=== PATIENT | female | born 1935 | race African-American/Black ===

== ENCOUNTER 2019-05-30 14:19 | Emergency (ER) | payer MEDICARE, MEDICAID ==
[~2019-05-30] VITALS: Ht 175.3 cm; Wt 68.0 kg
[2019-05-30] MEDS ORDERED: OXYCODONE HCL 10MG TABLET SR 12HR PO ONE ×2 (15:30→21:00)
[2019-05-30 17:26] LABS: BASOPHILS % 0.3 % (0.0-2.0); EOSINOPHILS % 0.7 % (0.0-5.0); HEMATOCRIT. 37.5 % (36.0-48.0); HEMOGLOBIN. 12.5 g/dL (12.0-16.0); LYMPHOCYTES % 14.7 % (20.0-50.0); MEAN CORPUSCULAR HEMOGLOBIN 33.7 pg (28.0-32.0); MEAN CORPUSCULAR VOLUME 101.2 fL (81.0-99.0); MEAN PLATELET VOLUME 7.3 fl (7.4-10.4); NEUTROPHILS % 77.3 % (40.0-76.0); PLATELET 251 x1000/uL (130-400); RED CELL DISTRIBUTION WIDTH 13.2 % (11.6-14.6)
[2019-05-30 17:29] LABS: CHLORIDE 98 mEq/L (98-107)
[2019-05-30] MEDS ORDERED: MORPHINE SULFATE 4 MG/ML CPJ (NOT FOR IM USE) IV ONE (18:30)
[2019-05-30] MEDS ORDERED: ONDANSETRON HCL 4MG/2ML INJ IV ONE (18:30)
[2019-05-30 21:31] VITALS: BP 164/76
[2019-05-31] MEDS ORDERED: BRIM.2 RIGHTEYE (08:43)
[2019-05-31] MEDS ORDERED: SACU1TAB MT (08:44)
[2019-05-31] MEDS ORDERED: ASPI-1158 PO (08:45)
[2019-05-31] MEDS ORDERED: OXYC15TA88 MT (08:46)
[2019-05-31] MEDS ORDERED: TAFL1DRO EACHEYE (13:14)
[2019-05-31] MEDS ORDERED: BRIM15DR8 EACHEYE (13:16)
[2019-05-31] MEDS ORDERED: BRIM5DRO RIGHTEYE (13:30)
== END 2019-05-30 21:35 | disposition home or self-care (01) ==
LOC: ER 14:34
DX: R10.9 Unspecified abdominal pain (principal); R07.81 Pleurodynia; R07.89 Other chest pain; I11.0 Hypertensive heart disease with heart failure; I50.9 Heart failure, unspecified; Z95.0 Presence of cardiac pacemaker
CPT/HCPCS: 36415; 71045; 74176; 80053; 83880; 84484; 85025; 93005; 96374; 96375; 99284; J2270; J2405

== ENCOUNTER 2019-05-31 00:15 | Inpatient (IN) | payer MEDICARE, MEDICAID ==
[~2019-05-31] VITALS: Ht 170.2 cm; Wt 66.7 kg
[2019-05-31 02:10] LABS: BASOPHILS % 0.2 % (0.0-2.0); EOSINOPHILS % 0.1 % (0.0-5.0); HEMATOCRIT. 38.5 % (36.0-48.0); HEMOGLOBIN. 12.9 g/dL (12.0-16.0); MEAN CORPUSCULAR HEMOGLOBIN 34.1 pg (28.0-32.0); MEAN CORPUSCULAR VOLUME 101.9 fL (81.0-99.0); MEAN PLATELET VOLUME 8.1 fl (7.4-10.4); MONOCYTES % 8.2 % (2.0-8.0); NEUTROPHILS % 81.5 % (40.0-76.0); PLATELET 240 x1000/uL (130-400); RED BLOOD CELL COUNT 3.78 mill/uL (4.2-5.4); RED CELL DISTRIBUTION WIDTH 13.3 % (11.6-14.6)
[2019-05-31 02:15] LABS: CHLORIDE 102 mEq/L (98-107)
[2019-05-31] MEDS ORDERED: MORPHINE SULFATE 4 MG/ML CPJ (NOT FOR IM USE) IV SCH (03:00)
[2019-05-31 08:13] VITALS: BP 134/66
[2019-05-31] MEDS ORDERED: BRIM.2 RIGHTEYE (08:43)
[2019-05-31] MEDS ORDERED: SACU1TAB MT (08:44)
[2019-05-31] MEDS ORDERED: ASPI-1158 PO (08:45)
[2019-05-31] MEDS ORDERED: OXYC15TA88 MT (08:46)
[2019-05-31] MEDS: OXYCODONE HCL 5MG TABLET PO PRN ×3 (10:20→23:02)
[2019-05-31 10:27] VITALS: BP 134/66
[2019-05-31 12:00] VITALS: BP 138/61
[2019-05-31] MEDS ORDERED: TAFL1DRO EACHEYE (13:14)
[2019-05-31] MEDS ORDERED: BRIM15DR8 EACHEYE (13:16)
[2019-05-31] MEDS ORDERED: BRIM5DRO RIGHTEYE (13:30)
[2019-05-31] MEDS: ASPIRIN 81MG EC TABLET PO SCH (14:32)
[2019-05-31] MEDS: LOSARTAN POTASSIUM 25 MG TABLET PO SCH (14:32)
[2019-05-31] MEDS ORDERED: POTASSIUM CHLORIDE 20MEQ TABLET SR PO NR (15:00)
[2019-05-31 16:00] VITALS: BP 117/53
[2019-05-31 20:00] VITALS: BP 111/58
[2019-05-31] MEDS ORDERED: ONDANSETRON HCL 4MG/2ML INJ IV PRN (22:15)
[2019-05-31] MEDS ORDERED: MAGNESIUM/ALUMINUM HYDROXIDE/SIMETHICONE 30ML UDC PO PRN (22:15)
[2019-05-31] MEDS ORDERED: ACETAMINOPHEN 325MG TABLET PO PRN (22:15)
[2019-05-31] MEDS ORDERED: LORAZEPAM 0.5MG TABLET PO PRN (22:15)
[2019-05-31] MEDS ORDERED: CLONIDINE 0.1MG TABLET PO PRN (22:15)
[2019-05-31] MEDS ORDERED: DIPHENHYDRAMINE 50MG/ML VIAL IV PRN (22:15)
[2019-06-01] VITALS: BP 124/59
[2019-06-01 04:00] VITALS: BP 130/67
[2019-06-01] MEDS: OXYCODONE HCL 5MG TABLET PO PRN ×4 (05:04→23:13)
[2019-06-01] MEDS: SODIUM CHLORIDE 0.9% INJ 3ML FLUSH IVF SCH ×3 (05:05→21:34)
[2019-06-01 07:46] LABS: BASOPHILS % 0.8 % (0.0-2.0); EOSINOPHILS % 4.1 % (0.0-5.0); HEMATOCRIT. 32.4 % (36.0-48.0); HEMOGLOBIN. 10.8 g/dL (12.0-16.0); LYMPHOCYTES % 30.9 % (20.0-50.0); MEAN CORPUSCULAR HEMOGLOBIN 33.7 pg (28.0-32.0); MEAN CORPUSCULAR VOLUME 101.2 fL (81.0-99.0); MONOCYTES % 11.9 % (2.0-8.0); NEUTROPHILS % 52.3 % (40.0-76.0); PLATELET 207 x1000/uL (130-400); RED CELL DISTRIBUTION WIDTH 13.3 % (11.6-14.6)
[2019-06-01 07:53] LABS: CHLORIDE 105 mEq/L (98-107)
[2019-06-01 08:00] VITALS: BP 111/57
[2019-06-01 08:05] LABS: LDL CHOLESTEROL 78 mg/dL (5-100)
[2019-06-01 08:06] LABS: CREATINE KINASE 102 IU/L (26-192); CREATINE KINASE MB FRACTION 2.3 ng/mL (0.5-3.6)
[2019-06-01 08:07] LABS: HDL CHOLESTEROL 59 mg/dL (40-59)
[2019-06-01] MEDS: BRIMONIDINE 0.2% OPHTH DROPS 5ML BOTHEYE SCH ×3 (08:13→17:24)
[2019-06-01] MEDS: ENOXAPARIN 40MG/0.4ML SYR SUBCUT SCH (09:00)
[2019-06-01] MEDS ORDERED: NON FORMULARY PATIENT HOME MED OP SCH ×2 (09:00→21:00)
[2019-06-01] MEDS: ASPIRIN 81MG EC TABLET PO SCH (09:36)
[2019-06-01] MEDS: LOSARTAN POTASSIUM 25 MG TABLET PO SCH (09:37)
[2019-06-01 12:00] VITALS: BP 101/43
[2019-06-01 16:00] VITALS: BP 130/58
[2019-06-01 18:50] LABS: VITAMIN B12 SERUM 740 pg/mL (211-911)
[2019-06-01 20:00] VITALS: BP 113/62
[2019-06-02] VITALS: BP 104/40
[2019-06-02 04:00] VITALS: BP 136/66
[2019-06-02] MEDS: OXYCODONE HCL 5MG TABLET PO PRN ×4 (05:22→23:13)
[2019-06-02] MEDS: SODIUM CHLORIDE 0.9% INJ 3ML FLUSH IVF SCH ×3 (05:31→22:00)
[2019-06-02 08:00] VITALS: BP 127/69
[2019-06-02] MEDS: ENOXAPARIN 40MG/0.4ML SYR SUBCUT SCH (09:00)
[2019-06-02] MEDS: LOSARTAN POTASSIUM 25 MG TABLET PO SCH (09:00)
[2019-06-02] MEDS: ASPIRIN 81MG EC TABLET PO SCH (09:02)
[2019-06-02] MEDS: BRIMONIDINE 0.2% OPHTH DROPS 5ML BOTHEYE SCH ×3 (09:03→17:11)
[2019-06-02 12:00] VITALS: BP 121/52
[2019-06-02 16:00] VITALS: BP 141/55
[2019-06-02 20:00] VITALS: BP 126/62
[2019-06-03] VITALS: BP 119/50
[2019-06-03 04:00] VITALS: BP 86/41
[2019-06-03 05:15] VITALS: BP 109/45
[2019-06-03] MEDS: SODIUM CHLORIDE 0.9% INJ 3ML FLUSH IVF SCH ×4 (05:17→21:44)
[2019-06-03] MEDS: OXYCODONE HCL 5MG TABLET PO PRN ×4 (05:17→23:02)
[2019-06-03 07:49] LABS: CHLORIDE 103 mEq/L (98-107)
[2019-06-03 08:00] VITALS: BP 120/69
[2019-06-03 08:24] LABS: BASOPHILS % 0.9 % (0.0-2.0); EOSINOPHILS % 4.8 % (0.0-5.0); HEMATOCRIT. 28.7 % (36.0-48.0); HEMOGLOBIN. 9.6 g/dL (12.0-16.0); LYMPHOCYTES % 30.3 % (20.0-50.0); MEAN CORPUSCULAR HEMOGLOBIN 33.9 pg (28.0-32.0); MEAN CORPUSCULAR VOLUME 101.5 fL (81.0-99.0); MEAN PLATELET VOLUME 7.6 fl (7.4-10.4); MONOCYTES % 14.7 % (2.0-8.0); NEUTROPHILS % 49.3 % (40.0-76.0); PLATELET 186 x1000/uL (130-400); RED BLOOD CELL COUNT 2.83 mill/uL (4.2-5.4); RED CELL DISTRIBUTION WIDTH 13.1 % (11.6-14.6)
[2019-06-03] MEDS: LOSARTAN POTASSIUM 25 MG TABLET PO SCH (10:02)
[2019-06-03] MEDS: ASPIRIN 81MG EC TABLET PO SCH (10:02)
[2019-06-03] MEDS: BRIMONIDINE 0.2% OPHTH DROPS 5ML BOTHEYE SCH ×3 (10:03→17:37)
[2019-06-03] MEDS: ENOXAPARIN 40MG/0.4ML SYR SUBCUT SCH ×2 (10:03→10:06)
[2019-06-03 16:00] VITALS: BP 135/70
[2019-06-03] MEDS: SACUBITRIL/VALSARTAN 24/26 TAB PO SCH (17:37)
[2019-06-03 20:00] VITALS: BP 108/52
[2019-06-03] MEDS: CARVEDILOL 6.25 MG TABLET PO SCH (21:40)
[2019-06-04] VITALS: BP 130/55
[2019-06-04] MEDS: OXYCODONE HCL 5MG TABLET PO PRN ×5 (00:37→23:46)
[2019-06-04 04:00] VITALS: BP 117/46
[2019-06-04] MEDS: SODIUM CHLORIDE 0.9% INJ 3ML FLUSH IVF SCH ×3 (05:39→21:07)
[2019-06-04 08:00] VITALS: BP 130/58
[2019-06-04] MEDS: ASPIRIN 81MG EC TABLET PO SCH (09:20)
[2019-06-04] MEDS: CARVEDILOL 6.25 MG TABLET PO SCH ×2 (09:21→20:51)
[2019-06-04] MEDS: BRIMONIDINE 0.2% OPHTH DROPS 5ML BOTHEYE SCH ×3 (09:22→17:38)
[2019-06-04] MEDS: SACUBITRIL/VALSARTAN 24/26 TAB PO SCH ×2 (09:22→17:38)
[2019-06-04 12:00] VITALS: BP 104/54
[2019-06-04] MEDS: ONDANSETRON 4MG ODT PO PRN ×3 (12:54→23:46)
[2019-06-04 16:00] VITALS: BP 94/50
[2019-06-04 20:00] VITALS: BP 108/48
[2019-06-05] VITALS: BP 148/53
[2019-06-05 04:00] VITALS: BP 158/55
[2019-06-05] MEDS: SODIUM CHLORIDE 0.9% INJ 3ML FLUSH IVF SCH (05:14)
[2019-06-05 06:00] VITALS: BP 138/56
[2019-06-05] MEDS: OXYCODONE HCL 5MG TABLET PO PRN (06:11)
[2019-06-05] MEDS: ONDANSETRON 4MG ODT PO PRN (06:11)
[2019-06-05] MEDS: ASPIRIN 81MG EC TABLET PO SCH (07:55)
[2019-06-05] MEDS: ENOXAPARIN 40MG/0.4ML SYR SUBCUT SCH ×2 (07:56→08:00)
[2019-06-05] MEDS: CARVEDILOL 6.25 MG TABLET PO SCH (07:56)
[2019-06-05] MEDS: SACUBITRIL/VALSARTAN 24/26 TAB PO SCH (07:56)
[2019-06-05] MEDS: BRIMONIDINE 0.2% OPHTH DROPS 5ML BOTHEYE SCH (07:56)
[2019-06-05 08:00] VITALS: BP 130/62
[2019-06-05 09:45] VITALS: BP 130/62
[2019-06-05 12:00] VITALS: BP 140/65
== END 2019-06-05 12:40 | disposition home or self-care (01) | DRG 309 ==
LOC: ER 00:15 → 5WST 04:28 → ENRESERV 05:04
PROVIDERS: ADMIT Internal Medicine; ATTEND Internal Medicine
DX: I47.1 Supraventricular tachycardia (principal); E87.2 Acidosis; I42.0 Dilated cardiomyopathy; R07.89 Other chest pain; I50.9 Heart failure, unspecified; I11.0 Hypertensive heart disease with heart failure; G89.4 Chronic pain syndrome; H40.9 Unspecified glaucoma; I25.10 Atherosclerotic heart disease of native coronary artery without angina pectoris; E86.0 Dehydration; Z79.891 Long term (current) use of opiate analgesic; Z79.82 Long term (current) use of aspirin; Z79.899 Other long term (current) drug therapy; Z95.810 Presence of automatic (implantable) cardiac defibrillator; Z82.49 Family history of ischemic heart disease and other diseases of the circulatory system; Z84.89 Family history of other specified conditions
CPT/HCPCS: 36415; 71045; 74176; 80061; 82550; 82553; 82607; 83605; 83735; 83880; 84443; 84484; 85379; 93005; 93306; 93970; J1650; J2270; J2405; Q0162

== ENCOUNTER 2019-07-21 13:13 | Inpatient (IN) | payer MEDICARE, MEDICAID ==
[~2019-07-21] VITALS: Ht 170.2 cm; Wt 47.6 kg
[~2019-07-21 13:13] MED LIST: ASPI-1158 PO; BRIM15DR8 EACHEYE; BRIM5DRO RIGHTEYE; OXYC15TA88 MT; SACU1TAB MT; TAFL1DRO EACHEYE
[2019-07-21] MEDS ORDERED: NITROGLYCERIN 0.4MG TABLET SL SL PRN (14:15)
[2019-07-21] MEDS ORDERED: ASPIRIN 81MG TABLET PO ONE (14:15)
[2019-07-21 14:27] LABS: BASOPHILS % 0.5 % (0.0-2.0); EOSINOPHILS % 1.9 % (0.0-5.0); HEMOGLOBIN. 11.5 g/dL (12.0-16.0); LYMPHOCYTES % 22.4 % (20.0-50.0); MEAN CORPUSCULAR HEMOGLOBIN 34.9 pg (28.0-32.0); MEAN CORPUSCULAR VOLUME 103.1 fL (81.0-99.0); MEAN PLATELET VOLUME 8.5 fl (7.4-10.4); MONOCYTES % 11.9 % (2.0-8.0); NEUTROPHILS % 63.3 % (40.0-76.0); PLATELET 256 x1000/uL (130-400); RED CELL DISTRIBUTION WIDTH 13.7 % (11.6-14.6)
[2019-07-21 14:33] LABS: CHLORIDE 104 mEq/L (98-107)
[2019-07-21] MEDS ORDERED: ONDANSETRON HCL 4MG/2ML INJ IV STA (15:29)
[2019-07-21] MEDS ORDERED: MORPHINE SULFATE 4 MG/ML CPJ (NOT FOR IM USE) IV STA (15:29)
[2019-07-21] MEDS ORDERED: TRAMADOL 50MG TABLET PO PRN (17:30)
[2019-07-21] MEDS ORDERED: GUAIFENESIN 200MG/10ML SUGAR FREE UDC PO PRN (17:30)
[2019-07-21] MEDS ORDERED: ONDANSETRON HCL 4MG/2ML INJ IV PRN (17:30)
[2019-07-21] MEDS ORDERED: CLONIDINE 0.1MG TABLET PO PRN (17:30)
[2019-07-21] MEDS ORDERED: MAGNESIUM/ALUMINUM HYDROXIDE/SIMETHICONE 30ML UDC PO PRN (17:30)
[2019-07-21] MEDS ORDERED: IPRATROPIUM/ALBUTEROL 0.5-3(2.5)MG/3ML NEB NEB PRN (17:30)
[2019-07-21] MEDS ORDERED: ZOLPIDEM TARTRATE 5MG TABLET PO PRN (17:30)
[2019-07-21] MEDS ORDERED: MORPHINE SULFATE 2 MG/ML CPJ (NOT FOR IM USE) IV PRN (17:30)
[2019-07-21 19:00] LABS: VITAMIN B12 SERUM 499 pg/mL (211-911)
[2019-07-21 19:02] LABS: FOLIC ACID (FOLATE) SERUM > 20.00 ng/mL (>5.38)
[2019-07-21 20:50] VITALS: BP 133/65
[2019-07-21] MEDS ORDERED: CARV25TA47 PO (21:36)
[2019-07-21] MEDS ORDERED: FURO-152 PO (21:37)
[2019-07-21] MEDS: LISINOPRIL 20MG TABLET PO SCH (21:52)
[2019-07-21] MEDS: HYDROCODONE/ACETAMINOPHEN 10/325MG TABLET PO PRN (23:57)
[2019-07-22] VITALS: BP 133/56
[2019-07-22 00:04] LABS: CREATINE KINASE 80 IU/L (26-192)
[2019-07-22 00:06] LABS: CREATINE KINASE MB FRACTION 1.6 ng/mL (0.5-3.6)
[2019-07-22 04:00] VITALS: BP 117/58
[2019-07-22] MEDS: SPIRONOLACTONE 25MG TABLET PO SCH (06:00)
[2019-07-22 08:00] VITALS: BP 107/54
[2019-07-22] MEDS: LISINOPRIL 20MG TABLET PO SCH ×2 (09:00→21:00)
[2019-07-22] MEDS: ENOXAPARIN 40MG/0.4ML SYR SUBCUT SCH (10:01)
[2019-07-22] MEDS: FAMOTIDINE 20MG TABLET PO SCH (10:02)
[2019-07-22] MEDS: ACETAMINOPHEN 325MG TABLET PO PRN ×2 (10:02→20:52)
[2019-07-22] MEDS: ASPIRIN 81MG EC TABLET PO SCH (10:02)
[2019-07-22] MEDS: FUROSEMIDE 20MG TABLET PO SCH ×2 (10:02→17:15)
[2019-07-22 10:26] LABS: BASOPHILS % 0.9 % (0.0-2.0); EOSINOPHILS % 2.8 % (0.0-5.0); HEMATOCRIT. 29.8 % (36.0-48.0); HEMOGLOBIN. 9.9 g/dL (12.0-16.0); LYMPHOCYTES % 30.6 % (20.0-50.0); MEAN CORPUSCULAR HEMOGLOBIN 34.2 pg (28.0-32.0); MEAN CORPUSCULAR VOLUME 102.5 fL (81.0-99.0); MEAN PLATELET VOLUME 8.1 fl (7.4-10.4); MONOCYTES % 12.7 % (2.0-8.0); PLATELET 231 x1000/uL (130-400); RED BLOOD CELL COUNT 2.91 mill/uL (4.2-5.4); RED CELL DISTRIBUTION WIDTH 13.6 % (11.6-14.6)
[2019-07-22] MEDS: HYDROCODONE/ACETAMINOPHEN 10/325MG TABLET PO PRN ×3 (10:55→23:24)
[2019-07-22 13:36] LABS: CHLORIDE 105 mEq/L (98-107)
[2019-07-22 13:46] LABS: CREATINE KINASE 74 IU/L (26-192)
[2019-07-22 13:52] LABS: CREATINE KINASE MB FRACTION < 1.0 ng/mL (0.5-3.6)
[2019-07-22] MEDS: KETOROLAC 15MG/ML VIAL IV PRN (15:40)
[2019-07-22 20:00] VITALS: BP 107/46
[2019-07-22] MEDS: PREGABALIN 50 MG CAPSULE PO PRN (23:24)
[2019-07-23] VITALS (8 sets, daily range): BP systolic 98–134; BP diastolic 46–73
[2019-07-23] MEDS: HYDROCODONE/ACETAMINOPHEN 10/325MG TABLET PO PRN ×4 (05:24→22:28)
[2019-07-23] MEDS: SPIRONOLACTONE 25MG TABLET PO SCH ×2 (06:00→18:07)
[2019-07-23] MEDS: FAMOTIDINE 20MG TABLET PO SCH (09:00)
[2019-07-23] MEDS: ENOXAPARIN 40MG/0.4ML SYR SUBCUT SCH (09:00)
[2019-07-23] MEDS: ASPIRIN 81MG EC TABLET PO SCH (09:36)
[2019-07-23] MEDS: FUROSEMIDE 20MG TABLET PO SCH ×2 (09:37→18:07)
[2019-07-23] MEDS: LISINOPRIL 20MG TABLET PO SCH ×2 (09:37→21:00)
[2019-07-23] MEDS: DOCUSATE SODIUM 100MG CAPSULE PO PRN ×2 (13:11→18:07)
[2019-07-23] MEDS ORDERED: MEDICATION NOT ON FORMULARY EA (Brimonidine Tartrate (Alphagan P) 1 DROP) RIGHTEYE SCH (17:00)
[2019-07-23] MEDS: BRIMONIDINE 0.2% OPHTH DROPS 5ML RIGHTEYE SCH (18:07)
[2019-07-23] MEDS: LATANOPROST 0.005% OPHTH DROPS 2.5ML RIGHTEYE SCH (20:55)
[2019-07-23] MEDS: PREGABALIN 50 MG CAPSULE PO PRN (20:55)
[2019-07-23] MEDS ORDERED: TAFLUPROST EACHEYE SCH (21:00)
[2019-07-24] VITALS: BP 98/52
[2019-07-24] MEDS: ACETAMINOPHEN 325MG TABLET PO PRN (00:33)
[2019-07-24] MEDS: HYDROCODONE/ACETAMINOPHEN 10/325MG TABLET PO PRN ×3 (04:39→20:07)
[2019-07-24] MEDS: SPIRONOLACTONE 25MG TABLET PO SCH ×2 (06:00→17:11)
[2019-07-24 08:00] VITALS: BP 158/88
[2019-07-24] MEDS: ENOXAPARIN 30MG/0.3ML SYR SUBCUT SCH (09:00)
[2019-07-24] MEDS: FAMOTIDINE 20MG TABLET PO SCH (09:00)
[2019-07-24] MEDS: FUROSEMIDE 20MG TABLET PO SCH ×2 (09:24→17:11)
[2019-07-24] MEDS: LISINOPRIL 20MG TABLET PO SCH ×2 (09:24→20:07)
[2019-07-24] MEDS: ASPIRIN 81MG EC TABLET PO SCH (09:25)
[2019-07-24] MEDS: BRIMONIDINE 0.2% OPHTH DROPS 5ML RIGHTEYE SCH ×2 (09:27→17:12)
[2019-07-24] MEDS: KETOROLAC 15MG/ML VIAL IV PRN (10:29)
[2019-07-24] MEDS ORDERED: LACTULOSE 20G/30ML UDC PO PRN (10:45)
[2019-07-24 12:00] VITALS: BP 114/77
[2019-07-24] MEDS: DOCUSATE SODIUM 100MG CAPSULE PO PRN (12:00)
[2019-07-24 16:00] VITALS: BP 163/70
[2019-07-24 20:00] VITALS: BP 137/72
[2019-07-24] MEDS: LATANOPROST 0.005% OPHTH DROPS 2.5ML RIGHTEYE SCH (20:07)
[2019-07-25] VITALS: BP 130/76
[2019-07-25] MEDS: KETOROLAC 15MG/ML VIAL IV PRN ×2 (00:33→06:36)
[2019-07-25] MEDS: HYDROCODONE/ACETAMINOPHEN 10/325MG TABLET PO PRN ×2 (02:43→10:47)
[2019-07-25 04:00] VITALS: BP 126/79
[2019-07-25] MEDS: SPIRONOLACTONE 25MG TABLET PO SCH ×2 (06:25→17:07)
[2019-07-25] MEDS: FUROSEMIDE 20MG TABLET PO SCH ×3 (06:25→17:12)
[2019-07-25 08:00] VITALS: BP 143/65
[2019-07-25] MEDS: ENOXAPARIN 30MG/0.3ML SYR SUBCUT SCH (09:00)
[2019-07-25] MEDS: LISINOPRIL 20MG TABLET PO SCH (09:12)
[2019-07-25] MEDS: ASPIRIN 81MG EC TABLET PO SCH (09:12)
[2019-07-25] MEDS: BRIMONIDINE 0.2% OPHTH DROPS 5ML RIGHTEYE SCH ×2 (09:13→17:00)
[2019-07-25] MEDS ORDERED: FAMOTIDINE 40MG TABLET PO SCH (09:45)
[2019-07-25 09:49] VITALS: BP 144/79
[2019-07-25 12:00] VITALS: BP 129/38
[2019-07-25 16:00] VITALS: BP 132/58
== END 2019-07-25 17:36 | DRG 313 ==
LOC: ER 13:13 → EDBEDREQ 16:29 → EDBEDREQTM 16:29 → SUPCPDRO 17:16 → ENRESERV 19:18 → 7WST 20:26
PROVIDERS: ADMIT Internal Medicine; ATTEND Internal Medicine
DX: R07.89 Other chest pain (principal); I50.41 Acute combined systolic (congestive) and diastolic (congestive) heart failure; I11.0 Hypertensive heart disease with heart failure; D63.8 Anemia in other chronic diseases classified elsewhere; Z95.810 Presence of automatic (implantable) cardiac defibrillator
CPT/HCPCS: 36415; 71045; 80053; 80061; 82550; 82553; 82607; 82746; 83036; 83540; 83550; 83880; 84484; 85025; 93005; 93970; 96374; 97162; 99285; J1650; J1885; J2270; J2405; J7620